=== PATIENT | female | born 1980 | race African-American/Black ===

== ENCOUNTER 2017-06-05 19:09 | Emergency (ER) | payer BC, MEDICAID ==
--- NOTE | 2017-06-05 20:44 | ER Document Report ---
ED Medical Screen (RME) - General Chief Complaint: Lower Abdominal Pain Stated Complaint: ABDOMINAL PAIN Time Seen by Provider: 06/05/17 20:41 Notes: 36-year-old female presents to ED for abdominal pain left and right sided it started this afternoon. She states the pain came out of nowhere she started feeling very hot and became sweaty and then the pain started. She denies nausea vomiting. She states her last menstrual period was May 14, 2017. I have greeted and performed a rapid initial assessment of this patient. A comprehensive ED assessment and evaluation of the patient, analysis of test results and completion of medical decision making process will be conducted by an additional ED providers. TRAVEL OUTSIDE OF THE [place] IN LAST 30 DAYS: No - HPI Onset: This afternoon Onset/Duration: Sudden Quality of pain: Cramping - Related Data Allergies/Adverse Reactions: No Known Allergies Allergy (Verified 11/08/16 14:58) Past Medical History - Social History Chew tobacco use (# tins/day): No Frequency of alcohol use: None Drug Abuse: None - Past Medical History Cardiac Medical History: Reports: Hx Hypertension - during . Neurological Medical History: Reports: Hx Seizures - none since 20 Renal/ Medical History: Denies: Hx Peritoneal Dialysis GI Medical History: Reports: Hx Gastroesophageal Reflux Disease Musculoskeltal Medical History: Reports Hx Musculoskeletal Trauma Psychiatric Medical History: Denies: Hx Depression Traumatic Medical History: Reports: Hx Fractures Past Surgical History: Reports: Hx Orthopedic Surgery - left ankle [employer] - Immunizations Immunizations up to date: Yes Hx Diphtheria, Pertussis, Tetanus Vaccination: Yes Physical Exam - Vital signs Vitals: Temp Pulse Resp BP Pulse Ox 98.2 F 88 20 145/71 H 100 06/05/17 19:19 06/05/17 19:19 06/05/17 19:19 06/05/17 19:19 06/05/17 19:19 - Abdominal Inspection: Normal Distension: Distended Bowel sounds: Normal Tenderness: Tender - Right and lower quadrant abdominal tenderness Organomegaly: No organomegaly Course - Vital Signs Vital signs: Temp Pulse Resp BP Pulse Ox 98.2 F 88 20 145/71 H 100 06/05/17 19:19 06/05/17 19:19 06/05/17 19:19 06/05/17 19:19 06/05/17 19:19
[2017-06-05 21:05] LABS: ABSOLUTE BASOPHILS # (AUTO) 0.1 10^3/uL (0.0-0.2); ABSOLUTE EOSINOPHILS # (AUTO) 0.1 10^3/uL (0.0-0.6); ABSOLUTE LYMPHOCYTES (AUTO) 1.4 10^3/uL (0.5-4.7); ABSOLUTE MONOCYTES (AUTO) 0.5 10^3/uL (0.1-1.4); ABSOLUTE NEUT (AUTO) 7.2 10^3/uL (1.7-8.2); BASOPHILS % (AUTO) 0.6 % (0-2); EOSINOPHILS % (AUTO) 1.4 % (0-6); HEMOGLOBIN 13.7 g/dL (12.0-15.5); HGB HCT DIFFERENCE -1.9; LYMPHOCYTES % (AUTO) 14.9 % (13-45); MEAN CORPUSCULAR HEMOGLOBIN 26.9 pg (27.0-33.4); MEAN CORPUSCULAR HGB CONC 31.9 g/dL (32.0-36.0); MEAN CORPUSCULAR VOLUME 84 fl (80-97); MONOCYTES % (AUTO) 5.6 % (3-13); RED CELL DISTRIBUTION WIDTH 15.2 % (11.5-14.0); SEGMENTED NEUTROPHILS % (AUTO) 77.5 % (42-78); WHITE BLOOD COUNT 9.3 10^3/uL (4.0-10.5)
[2017-06-05 21:09] LABS: APPEARANCE,URINE SLIGHTLY-CLOUDY; BILIRUBIN,URINE NEGATIVE (NEGATIVE); GLUCOSE, URINE 50 mg/dL (NEGATIVE); KETONES,URINE NEGATIVE (NEGATIVE); LEUKOCYTE ESTERASE,URINE SMALL (NEGATIVE); NITRITE,URINE NEGATIVE (NEGATIVE); PROTEIN,URINE NEGATIVE (NEGATIVE); URINE SPECIFIC GRAVITY 1.028; UROBILINOGEN,URINE NEGATIVE mg/dL (<2.0)
[2017-06-05 21:26] LABS: ALANINE AMINOTRANSFERASE 33 U/L (9-52); ALKALINE PHOSPHATASE 78 U/L (38-126); ANION GAP 10 (5-19); ASPARTATE AMINO TRANSFERASE 17 U/L (14-36); BILIRUBIN,DIRECT 0.3 mg/dL (0.0-0.4); BILIRUBIN,TOTAL 0.3 mg/dL (0.2-1.3); BLOOD UREA NITROGEN 11 mg/dL (7-20); CALCIUM 9.5 mg/dL (8.4-10.2); CARBON DIOXIDE 24 mmol/L (22-30); CHLORIDE 108 mmol/L (98-107); CREATININE RESULT 0.75 mg/dL (0.52-1.25); GLUCOSE 88 mg/dL (75-110); POTASSIUM 4.1 mmol/L (3.6-5.0); SODIUM 142.1 mmol/L (137-145)
--- NOTE | 2017-06-06 01:54 | ER Document Report ---
ED GI/ - General Mode of Arrival: Ambulatory Information source: Patient TRAVEL OUTSIDE OF THE [place] IN LAST 30 DAYS: No - HPI Patient complains to provider of: Abdominal pain <MARKUS CEDEÑO - Last Filed: 06/06/17 03:11> <AL SAXENA - Last Filed: 06/06/17 04:34> - General Chief Complaint: Lower Abdominal Pain Stated Complaint: ABDOMINAL PAIN Time Seen by Provider: 06/05/17 20:41 Notes: Patient is a 36-year-old female presents to ED for abdominal pain left and right sided it started yesterday afternoon. She states the pain came out of nowhere. Patient went to work yesterday and it started after work. Patient states it hurt even to walk. Patient denies any Gonorrhea or chlamydia but states she has had a history of ovarian cysts. Patient states she started feeling very hot and became sweaty and then the pain started. Patient denies nausea, vomiting, Patient's last menstrual period was 05/15/2017. Patient has no known drug allergies. (MARKUS CEDEÑO) - Related Data Allergies/Adverse Reactions: No Known Allergies Allergy (Verified 11/08/16 14:58) Past Medical History - General Information source: Patient - Social History Smoking Status: Current Every Day Smoker Chew tobacco use (# tins/day): No Frequency of alcohol use: None Drug Abuse: None Family History: Hypertension Patient has suicidal ideation: No Patient has homicidal ideation: No - Past Medical History Cardiac Medical History: Reports: Hx Hypertension - during . Neurological Medical History: Reports: Hx Seizures - none since 20 GI Medical History: Reports: Hx Gastroesophageal Reflux Disease Musculoskeltal Medical History: Reports Hx Musculoskeletal Trauma Traumatic Medical History: Reports: Hx Fractures Past Surgical History: Reports: Hx Orthopedic Surgery - left ankle [employer] - Immunizations Immunizations up to date: Yes Hx Diphtheria, Pertussis, Tetanus Vaccination: Yes <MARKUS CEDEÑO - Last Filed: 06/06/17 03:11> Review of Systems - Review of Systems Constitutional: See HPI, Chills, Diaphoresis EENT: No symptoms reported Cardiovascular: No symptoms reported Respiratory: No symptoms reported Gastrointestinal: See HPI, Abdominal pain Genitourinary: No symptoms reported Female Genitourinary: No symptoms reported Musculoskeletal: No symptoms reported Skin: No symptoms reported Hematologic/Lymphatic: No symptoms reported Neurological/Psychological: No symptoms reported -: Yes All other systems reviewed and negative <MARKUS CEDEÑO - Last Filed: 06/06/17 03:11> Physical Exam - Vital signs Interpretation: Normal <MARKUS CEDEÑO - Last Filed: 06/06/17 03:11> <AL SAXENA - Last Filed: 06/06/17 04:34> - Vital signs Vitals: Temp Pulse Resp BP Pulse Ox 98.2 F 88 20 145/71 H 100 06/05/17 19:19 06/05/17 19:19 06/05/17 19:19 06/05/17 19:19 06/05/17 19:19 - Notes Notes: GENERAL: Alert, interacts well. No acute distress. HEAD: Normocephalic, atraumatic. EYES: Appear normal. Pupils equal, round, and reactive to light. ENT: Moist mucus membranes, tongue midline. NECK: Full range of motion. Supple. Trachea midline. LUNGS: Clear to auscultation bilaterally, no wheezes, rales, or rhonchi. No respiratory distress. HEART: Regular rate and rhythm. No murmurs, gallops, or rubs. ABDOMEN: Soft, non-tender. Non-distended. Normal bowel sounds. No guarding, rebound or rigidity. EXTREMITIES: Moves all 4 extremities spontaneously. Normal strength. No edema. NEUROLOGICAL: Alert and oriented x3. Normal speech. No focal neurological deficits. GSC 15. PSYCH: Normal affect, normal mood. SKIN: Warm, dry, normal turgor. No rashes or lesions noted. (MARKUS CEDEÑO) Course - Laboratory Result Diagrams: 06/05/17 20:45 06/05/17 20:45 <MARKUS CEDEÑO - Last Filed: 06/06/17 03:11> - Laboratory Result Diagrams: 06/05/17 20:45 06/05/17 20:45 <AL SAXENA - Last Filed: 06/06/17 04:34> - Re-evaluation Re-evalutation: 06/06/17 02:03 Patient presents emerged from acute onset of lower abdominal pain which is now resolved on my physical examination. Said she was driving home came on all of a sudden with sharp stabbing in her vagina area. Says she has a history of ovarian cyst is completely resolved at the bedside now no fevers chills cough abdominal pain vaginal bleeding discharge or . Denies being having a history of gonorrhea or chlamydia and does not have painful intercourse. Acute laboratory evaluation is negative including and urine no signs of infection. And on a abdominal examination no acute guarding rebound or rigidity. Patient is discharged follow-up primary care physician 1 to days given a shot of Toradol no acute clinical concern for acute abdomen ovarian torsion or appendicitis and discussed reasons for ED return sooner (AL SAXENA) - Vital Signs Vital signs: Temp Pulse Resp BP Pulse Ox 98.2 F 66 18 119/80 99 06/06/17 02:41 06/06/17 02:41 06/06/17 02:41 06/06/17 02:41 06/06/17 02:41 - Laboratory Laboratory results interpreted by me: 06/05/17 06/05/17 06/05/17 20:45 20:45 20:45 MCH 26.9 L MCHC 31.9 L RDW 15.2 H Plt Count 144 L Chloride 108 H Urine Glucose (UA) 50 H Ur Leukocyte Esterase SMALL H Urine Ascorbic Acid 20 H Discharge <MARKUS CEDEÑO - Last Filed: 06/06/17 03:11> <AL SAXENA - Last Filed: 06/06/17 04:34> - Discharge Clinical Impression: Lower abdominal pain resolved Condition: Stable Disposition: HOME, SELF-CARE Additional Instructions: Abdominal Pain There are many causes of abdominal pain. Pain can mean a serious problem requiring surgery (such as appendicitis). It can also be an innocent problem that goes away on its own (such as a viral infection). Often, time must pass to determine the cause of pain. The physician does not feel that hospitalization is necessary, at present. Things may change within the next 24 hours. Call the doctor or come back for re- examination if any problems occur, such as: (1) Pain that becomes more severe, steady, or becomes concentrated in one specific area. Also, pain that is more severe with movement or coughing. (2) Vomiting that persists or becomes more frequent. (3) Blood in the vomitus, urine, or bowel movements. Blood in the stool may have a tarry or black appearance. (4) Shaking chills or fever greater than 100 degrees F. (5) The abdomen becomes more distended or swollen. (6) Bowel movements cease. (7) Failure to improve as expected. Forms: Return to Work Referrals: TOM YUAN DO [Primary Care Provider] - (Follow-up in 1-2 days return for increasing worsening or new symptoms) Scribe Attestation: 06/06/17 02:03 I personally performed the services described in the documentation reviewed the documentation recorded by my scribe in my presence and it accurately and completely records my words and actions (AL SAXENA) Scribe Documentation - Scribe Written by Scribe:: Hilda Callaway, 06/06/17 2:45 acting as scribe for :: Gonzalo <MARKUS CEDEÑO - Last Filed: 06/06/17 03:11>
[2017-06-06] MEDS ORDERED: KETOROLAC TROMETHAMINE 60 MG/2 ML SDV IM ONE (02:05)
[2017-06-06 02:44] VITALS: BP 119/80
== END 2017-06-06 02:41 | disposition home or self-care (01) ==
LOC: ER 19:09
DX: R10.30 Lower abdominal pain, unspecified (principal); R68.83 Chills (without fever); R61 Generalized hyperhidrosis; F17.200 Nicotine dependence, unspecified, uncomplicated; K21.9 Gastro-esophageal reflux disease without esophagitis
CPT/HCPCS: 99284; 96372; 36415; 84703; 85025; 80053; 81001; J1885

== ENCOUNTER 2017-06-25 16:30 | Emergency (ER) | payer BC ==
[2017-06-25 16:39] VITALS: BP 129/74
--- NOTE | 2017-06-25 17:14 | ER Document Report ---
ED GI/ - General Chief Complaint: Back Pain Stated Complaint: BACK PAIN Time Seen by Provider: 06/25/17 16:57 Notes: Patient is a 36-year-old female who returns emergency department complaining of spotting when she wipes after she urinates. Patient states that the symptoms started yesterday. Patient admits to low back pain as well that has responded well to Excedrin. Patient is not sure if she is started her menses again. She states that her last menstrual period was June 14 and lasted 4 days which is normal for her. Patient states that she is sexually active but has not been for about 6 weeks. She denies any pelvic pain, pelvic cramping, vaginal discharge, vaginal pain. Patient only admits to noticing blood when she wipes after urination but this denies any vaginal discharge or vaginal bleeding noted in her underwear. Otherwise patient admits to past medical history significant for anxiety and history of seizures. Her primary care physician is Dr. Alli Dukes TRAVEL OUTSIDE OF THE [place] IN LAST 30 DAYS: No - Related Data Allergies/Adverse Reactions: No Known Allergies Allergy (Verified 11/08/16 14:58) Past Medical History - Social History Smoking Status: Current Every Day Smoker Family History: Hypertension - Past Medical History Cardiac Medical History: Reports: Hx Hypertension - during . Neurological Medical History: Reports: Hx Seizures - none since 20 Renal/ Medical History: Denies: Hx Peritoneal Dialysis GI Medical History: Reports: Hx Gastroesophageal Reflux Disease Musculoskeltal Medical History: Reports Hx Musculoskeletal Trauma Psychiatric Medical History: Denies: Hx Depression Traumatic Medical History: Reports: Hx Fractures Past Surgical History: Reports: Hx Orthopedic Surgery - left ankle [employer] - Immunizations Immunizations up to date: Yes Hx Diphtheria, Pertussis, Tetanus Vaccination: Yes Review of Systems - Review of Systems Constitutional: No symptoms reported Genitourinary: See HPI -: Yes All other systems reviewed and negative Physical Exam - Vital signs Vitals: Temp Pulse Resp BP Pulse Ox 98.6 F 85 16 129/74 H 98 06/25/17 16:35 06/25/17 16:35 06/25/17 16:35 06/25/17 16:35 06/25/17 16:35 - Notes Notes: PHYSICAL EXAM GENERAL: Alert, interacts well. HEAD: Normocephalic, atraumatic. EYES: Pupils equal, round, and reactive to light. Extraocular movements intact. ENT: Oral mucosa moist, tongue midline. NECK: Full range of motion. Supple. Trachea midline. LUNGS: Clear to auscultation bilaterally, no wheezes, rales, or rhonchi. No respiratory distress. HEART: Regular rate and rhythm. No murmurs, gallops, or rubs. ABDOMEN: Soft, nondistended, nontender. No guarding, rebound, or rigidity.. Bowel sounds present in all 4 quadrants. EXTREMITIES: Moves all 4 extremities spontaneously. No edema, radial and dorsalis pedis pulses 2/4 bilaterally. No cyanosis. NEUROLOGICAL: Alert and oriented x4. Normal speech. PSYCH: Normal affect, normal mood. SKIN: Warm, dry, normal turgor. No rashes or lesions noted. Course - Re-evaluation Re-evalutation: 06/25/17 20:08 Patient is a 36-year-old female who is hemodynamically stable, no acute distress and afebrile. Urinalysis shows evidence of urinary tract infection without associated hematuria or concern for pyelonephritis. Patient will be started on antibiotic course and given strict return precautions otherwise will follow up with primary care. After performing a Medical Screening Examination, I estimate there is LOW risk for ACUTE APPENDICITIS, BOWEL OBSTRUCTION, ACUTE CHOLECYSTITIS, PERFORATED DIVERTICULITIS, INCARCERATED HERNIA, PANCREATITIS, PELVIC INFLAMMATORY DISEASE, PERFORATED ULCER, ECTOPIC , or TUBO-OVARIAN ABSCESS, thus I consider the discharge disposition reasonable. Also, there is no evidence or peritonitis , sepsis, or toxicity. I have reevaluated this patient multiple times and no significant life threatening changes are noted. The patient and I have discussed the diagnosis and risks, and we agree with discharging home with close follow-up with the understanding that symptoms and presentations can change. We also discussed returning to the Emergency Department immediately if new or worsening symptoms occur. We have discussed the symptoms which are most concerning (e.g., bloody stool, fever, changing or worsening pain, vomiting) that necessitate immediate return. - Vital Signs Vital signs: Temp Pulse Resp BP Pulse Ox 98.6 F 85 16 129/74 H 98 06/25/17 16:35 06/25/17 16:35 06/25/17 16:35 06/25/17 16:35 06/25/17 16:35 - Laboratory Laboratory results interpreted by me: 06/25/17 18:00 Ur Leukocyte Esterase MODERATE H Urine Ascorbic Acid 40 H Discharge - Discharge Clinical Impression: UTI (urinary tract infection) Qualifiers: Urinary tract infection type: acute cystitis Hematuria presence: without hematuria Qualified Code(s): N30.00 - Acute cystitis without hematuria Condition: Good Disposition: HOME, SELF-CARE Additional Instructions: URINARY TRACT INFECTION: Your evaluation indicates that you have a urinary tract infection. This is due to germs growing in the bladder. This is a common problem. This infection usually responds quickly to antibiotics. Your antibiotic should be taken exactly as prescribed. Drink plenty of fluids -- three to four quarts a day. Occasionally, a bladder anesthetic will be prescribed to help stop the feeling of urgency until the antibiotic has a chance to clear the infection. This may cause your urine to be dark orange. Certain urine infections require a culture. If the doctor obtained a culture, the results will be back in two days. You should call to see if a change in treatment is needed. A repeat urinalysis after you finish treatment is often recommended. The physician will let you know if further testing is required. Call the doctor if you develop fever, chills, flank pain, inability to urinate, or blood in the urine. ANTIBIOTIC THERAPY: You have been given an antibiotic prescription. It's important that you take all the medication, unless instructed otherwise by your physician. Failure to complete the entire course can result in relapse of your condition. Common side effects of antibiotics include nausea, intestinal cramping, or diarrhea. Women may develop vaginal yeast infections, and babies can get yeast (thrush) in the mouth following the use of antibiotics. Contact your physician if you develop significant side effects from this medication. Allergy to this antibiotic can result in hives, wheezing, faintness, or itching. If symptoms of allergy occur, stop the medication and call the doctor. TRIMETHOPRIM-SULFA: You have been given a prescription for trimethoprim-sulfa (TMS, Septra, Bactrim). This is a combination antibiotic of the sulfa class, often used for urinary tract infections, middle ear infections, bronchitis, shigella intestinal infection, and Pneumocystis pneumonia. TMS is usually well-tolerated. Occasional side effects include nausea and decreased appetite. Septra is not recommended for infants less than two months of age. Do not take this medication if you have experienced severe side effects or allergy to sulfa medicine. You should stop this medicine at once and contact your physician if you develop any rash, joint pain, shortness of breath, bruising, or jaundice ( yellow color in the skin), or if you develop any other new or unusual symptoms. FOLLOW-UP CARE: If you have been referred to a physician for follow-up care, call the physician s office for an appointment as you were instructed or within the next two days. If you experience worsening or a significant change in your symptoms, notify the physician immediately or return to the Emergency Department at any time for re-evaluation. Prescriptions: Sulfamethoxazole/Trimethoprim [Bactrim Ds Tablet] 1 each PO BID #6 tablet Referrals: ALLI DUKES MD [Primary Care Provider] - Follow up in 1 week
[2017-06-25 18:28] LABS: APPEARANCE,URINE CLOUDY; BILIRUBIN,URINE NEGATIVE (NEGATIVE); GLUCOSE, URINE NEGATIVE (NEGATIVE); KETONES,URINE NEGATIVE (NEGATIVE); LEUKOCYTE ESTERASE,URINE MODERATE (NEGATIVE); NITRITE,URINE NEGATIVE (NEGATIVE); PROTEIN,URINE NEGATIVE (NEGATIVE); URINE SPECIFIC GRAVITY 1.026; UROBILINOGEN,URINE NEGATIVE mg/dL (<2.0)
[2017-06-25] MEDS ORDERED: IBUPROFEN 800 MG TABLET PO ONE (18:42)
[2017-06-25] MEDS ORDERED: SULFAMETHOXAZOLE/TRIMETHOPRIM 800-160 MG TABLET PO ONE (18:42)
== END 2017-06-25 19:02 | disposition home or self-care (01) ==
LOC: ER 16:30
DX: N30.00 Acute cystitis without hematuria (principal); M54.5 Low back pain; F17.200 Nicotine dependence, unspecified, uncomplicated
CPT/HCPCS: 81001; 81025; 99283

== ENCOUNTER 2017-11-09 10:54 | Emergency (ER) | payer SELFPAY ==
--- NOTE | 2017-11-09 11:58 | ER Document Report ---
ED General - General Chief Complaint: Wrist Pain Stated Complaint: RIGHT WRIST PAIN Time Seen by Provider: 11/09/17 11:56 Mode of Arrival: Ambulatory Information source: Patient Notes: Patient is a 36-year-old female presents with right wrist pain and swelling started 3 days ago. She denies any fall or injury to the wrist. 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 She does endorse increased repetitive movement at her job. She also endorses swelling and a burning sensation to her third fourth and fifth digit on her right hand. She has not tried any medication for this. She denies any numbness or tingling. Otherwise doing well. TRAVEL OUTSIDE OF THE [place] IN LAST 30 DAYS: No - Related Data Allergies/Adverse Reactions: No Known Allergies Allergy (Verified 11/09/17 10:55) Past Medical History - General Information source: Patient - Social History Smoking Status: Current Every Day Smoker Chew tobacco use (# tins/day): No Frequency of alcohol use: None Drug Abuse: None Family History: Hypertension Patient has suicidal ideation: No Patient has homicidal ideation: No - Past Medical History Cardiac Medical History: Reports: Hx Hypertension - during . Neurological Medical History: Reports: Hx Seizures - none since 20 Renal/ Medical History: Denies: Hx Peritoneal Dialysis GI Medical History: Reports: Hx Gastroesophageal Reflux Disease Musculoskeltal Medical History: Reports Hx Musculoskeletal Trauma Psychiatric Medical History: Denies: Hx Depression Traumatic Medical History: Reports: Hx Fractures Past Surgical History: Reports: Hx Orthopedic Surgery - left ankle [employer] - Immunizations Immunizations up to date: Yes Hx Diphtheria, Pertussis, Tetanus Vaccination: Yes Review of Systems - Review of Systems Constitutional: See HPI EENT: No symptoms reported Cardiovascular: No symptoms reported Respiratory: No symptoms reported Gastrointestinal: No symptoms reported Genitourinary: No symptoms reported Female Genitourinary: No symptoms reported Musculoskeletal: See HPI Skin: No symptoms reported Hematologic/Lymphatic: No symptoms reported Neurological/Psychological: No symptoms reported Physical Exam - Vital signs Vitals: Temp Pulse Resp BP Pulse Ox 98.7 F 88 16 133/92 H 99 11/09/17 10:58 11/09/17 10:58 11/09/17 10:58 11/09/17 10:58 11/09/17 10:58 - Notes Notes: PHYSICAL EXAM: CONSTITUTIONAL: Alert and oriented, well-appearing and in no acute distress. HENT: Normocephalic, atraumatic. Ear canals without erythema or foreign body, Moist mucous membranes. EYES: Pupils equal round and reactive to light, EOM intact. Sclera anicteric, conjunctiva are normal. No entrapment. NECK: supple without lymphadenopathy. No midline tenderness or paraspinous muscle spasms. No step-offs or deformities. ROM intact. HEART: Regular rate and rhythm without murmurs. LUNGS: CTAB and equal. No wheezes, rales or rhonchi. EXTREMITIES: Right wrist - tender to palpation over distal radius/ulna with minimal swelling, Positive Phalen's and Tinel's test. Negative Finklestein's. Normal range of motion, no pitting edema. No cyanosis. Cap Refill <3 seconds. Distal pulses intact. NEURO: Cranial nerves grossly intact. Normal sensory/motor exams. PSYCH: Normal mood, normal affect. SKIN: Warm and dry. Normal turgor. No rashes or lesions noted. Course - Re-evaluation Re-evalutation: 11/09/17 11:58 Patient seen and examined. Patient is alert and oriented, speaking in full sentences without difficulty, nontoxic in appearance. Exam consistent with carpal tunnel syndrome, low suspicion at this time for DVT or acute fracture/ dislocation. She denies any injury to the area. She does repetitive motion at work. Will treat with Velcro wrist splint, steroids and anti-inflammatories. At this time, will discharge with return precautions and follow-up recommendations. Verbal discharge instructions given at the bedside and opportunity for questions given. Medication warnings reviewed. Patient is in agreement with this plan and has verbalized understanding of return precautions and the need for primary care follow-up in the next 24-72 hours. - Vital Signs Vital signs: Temp Pulse Resp BP Pulse Ox 98.7 F 88 16 133/92 H 99 11/09/17 10:58 11/09/17 10:58 11/09/17 10:58 11/09/17 10:58 11/09/17 10:58 Procedures - Immobilization Right Wrist Pre-Proc Neuro Vasc Exam: Normal Immobilizer type: Cock-up Performed by: PCT Post-Proc Neuro Vasc Exam: Normal Alignment checked and good: Yes Discharge - Discharge Clinical Impression: Carpal tunnel syndrome of right wrist Condition: Stable Disposition: HOME, SELF-CARE Instructions: Carpal Tunnel Syndrome ([facility]) Additional Instructions: Anti-Inflammatory Medication You have received a prescription for an antiinflammatory agent. This is an excellent, safe drug for pain control. In addition, it has potent antiinflammatory effects which are beneficial, especially in the treatment of injuries, arthritis, or tendonitis. It's best to take this medicine with food. Persons with ulcer disease or allergy to aspirin should notify their physician of this before taking this drug. Take the medication exactly as prescribed. Don't take additional doses unless instructed to do so by your doctor. If you develop wheezing, shortness of breath, hives, faintness, stomach pain, vomiting, or dark black stools, return for re-evaluation at once. STEROID MEDICATION: You have been given a medicine of the cortisone/steroid class. This medication is used to control inflammation or allergy. It is usually only given for a short period of time, until the acute process subsides. There are usually no side effects from short-term use of cortisone-like medications. Some persons feel an increased sense of well-being and are not sleepy at bedtime. Long-term use of cortisone medications is best avoided, unless required for a severe condition. If your condition does not remit, or relapses after the course of corticosteroid medication, you should consult your physician. Follow up with the provider of your choice in one to two weeks. Prescriptions: Naproxen [Naprosyn 250 mg Tablet] 250 mg PO BID #20 tablet Prednisone [Deltasone 20 mg Tablet] 3 tab PO DAILY 5 Days tablet Forms: Return to Work
[2017-11-09 12:25] VITALS: BP 132/78
== END 2017-11-09 12:24 | disposition home or self-care (01) ==
LOC: ER 10:54
DX: G56.01 Carpal tunnel syndrome, right upper limb (principal); M25.531 Pain in right wrist; R20.8 Other disturbances of skin sensation; F17.200 Nicotine dependence, unspecified, uncomplicated
CPT/HCPCS: 99283; L3908

== ENCOUNTER 2018-05-24 19:13 | Emergency (ER) | payer BC, MEDICAID ==
[2018-05-24] MEDS ORDERED: DIPHENHYDRAMINE HCL 50 MG CAPSULE PO ONE (19:51)
[2018-05-24] MEDS ORDERED: KETOROLAC TROMETHAMINE 10 MG TABLET PO ONE (19:51)
[2018-05-24] MEDS ORDERED: DIAZEPAM 2 MG TABLET PO ONE (19:51)
[2018-05-24] MEDS ORDERED: PROCHLORPERAZINE MALEATE 10 MG TABLET PO ONE (19:51)
--- NOTE | 2018-05-24 19:54 | ER Document Report ---
ED General - General Chief Complaint: Headache Stated Complaint: CRAMPING Time Seen by Provider: 05/24/18 19:27 Mode of Arrival: Ambulatory Information source: Patient Notes: 37-year-old female history of migraine headaches and sciatica presents with complaints of exacerbation of both. Patient notes she has had sciatica for over a year now is always on the right side. Patient denies any trauma. Patient does note that she has had a migraine for the past 3 days associated with light sensitivity. Patient does not know a specific cause of her migraines. Denies any neurological deficits denies any confusion denies any vomiting TRAVEL OUTSIDE OF THE [place] IN LAST 30 DAYS: No - HPI Onset: Other - 3 day duration Onset/Duration: Persistent Quality of pain: Achy Severity: Mild Pain Level: 1 Associated symptoms: Body/muscle aches, Headache Exacerbated by: Movement, Other Relieved by: Denies Similar symptoms previously: Yes Recently seen / treated by doctor: Yes - Related Data Allergies/Adverse Reactions: No Known Allergies Allergy (Verified 05/24/18 19:13) Past Medical History - Social History Smoking Status: Never Smoker Cigarette use (# per day): No Chew tobacco use (# tins/day): No Smoking Education Provided: No Family History: Hypertension - Past Medical History Cardiac Medical History: Reports: Hx Hypertension - during . 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 Denies recent illness. EENT: Denies eye, ear, throat, or mouth pain or symptoms. Denies nasal or sinus congestion or discharge. Denies throat, tongue, or mouth swelling or difficulty swallowing. CARDIOVASCULAR: Denies chest pain. Denies palpitations or racing or irregular heart beat. Denies ankle edema. RESPIRATORY: Denies cough, cold, or chest congestion. Denies shortness of breath, difficulty breathing, or wheezing. GASTROINTESTINAL: Denies abdominal pain or distention. Denies nausea, vomiting , or diarrhea. Denies blood in vomitus, stools, or per rectum. Denies black, tarry stools. Denies constipation. GENITOURINARY: Denies difficulty urinating, painful urination, burning, frequency, blood in urine, or discharge. FEMALE GENITOURINARY: Denies vaginal bleeding, heavy or abnormal periods, irregular periods. Denies vaginal discharge or odor. MUSCULOSKELETAL: Denies back or neck pain or stiffness. Denies joint pain or swelling. SKIN: Denies rash, lesions or sores. HEMATOLOGIC : Denies easy bruising or bleeding. LYMPHATIC: Denies swollen, enlarged glands. NEUROLOGICAL: Admits to migraine headache admits to right low back pain radiating to the right leg PSYCHIATRIC: Denies anxiety or stress. Denies depression, suicidal ideation, or homicidal ideation. ALL OTHER SYSTEMS REVIEWED AND NEGATIVE. PHYSICAL EXAMINATION: GENERAL: Well-appearing, well-nourished and in no acute distress. HEAD: Atraumatic, normocephalic. EYES: Pupils equal round and reactive to light, extraocular movements intact, conjunctiva are normal. ENT: Nares patent, oropharynx clear without exudates. Moist mucous membranes. NECK: Normal range of motion, supple without lymphadenopathy LUNGS: Breath sounds clear to auscultation bilaterally and equal. No wheezes rales or rhonchi. HEART: Regular rate and rhythm without murmurs ABDOMEN: Soft, nontender, nondistended abdomen. No guarding, no rebound. No masses appreciated. Female : deferred Musculoskeletal: Normal range of motion, no pitting or edema. No cyanosis. NEUROLOGICAL: Cranial nerves grossly intact. Normal speech, normal gait. Normal sensory, motor exams PSYCH: Normal mood, normal affect. SKIN: Warm, Dry, normal turgor, no rashes or lesions noted. Dictation was performed using [employer] voice recognition software Physical Exam - Vital signs Vitals: Temp Pulse Resp BP Pulse Ox 98.7 F 92 18 134/88 H 99 05/24/18 19:22 05/24/18 19:22 05/24/18 19:22 05/24/18 19:22 05/24/18 19:22 Course - Re-evaluation Re-evalutation: 05/24/18 19:54 Patient will be treated for migraine and sciatica, she overall looks well neurologically is intact, I do not believe she requires any imaging as this is similar to previous migraines 05/24/18 22:20 Patient notes symptoms have improved significantly, she will be discharged at this time After performing a Medical Screening Examination, I estimate there is LOW risk for ACUTE GLAUCOMA, TEMPORAL ARTERITIS, MENINGITIS, INCRANIAL HEMORRHAGE, or ISCHEMIC STROKE thus I consider the discharge disposition reasonable. I have reevaluated this patient multiple times and no significant life threatening changes are noted. The patient and I have discussed the diagnosis and risks, and we agree with discharging home with close follow-up with the understanding that symptoms and presentations can change. We also discussed returning to the Emergency Department immediately if new or worsening symptoms occur. We have discussed the symptoms which are most concerning (e.g., changing or worsening symptoms, new numbness or weakness, vomiting, fever) that necessitate immediate return. - Vital Signs Vital signs: Temp Pulse Resp BP Pulse Ox 98.7 F 86 18 141/96 H 98 05/24/18 19:22 05/24/18 19:57 05/24/18 21:00 05/24/18 21:00 05/24/18 21:00 Discharge - Discharge Clinical Impression: Migraine headache Qualifiers: Migraine type: unspecified Status migrainosus presence: without status migrainosus Intractability: not intractable Qualified Code(s): G43.909 - Migraine, unspecified, not intractable, without status migrainosus Sciatica Qualifiers: Laterality: right Qualified Code(s): M54.31 - Sciatica, right side Condition: Stable Disposition: HOME, SELF-CARE Instructions: Headache ([facility]) Prescriptions: Cyclobenzaprine HCl [Flexeril 10 mg Tablet] 10 mg PO TIDP PRN #15 tab PRN Reason: Forms: Return to Work Referrals: KILEY DUKES MD [Primary Care Provider] - Follow up tomorrow
[2018-05-24 22:23] VITALS: BP 124/89
== END 2018-05-24 22:26 | disposition home or self-care (01) ==
LOC: ER 19:13
DX: G43.909 Migraine, unspecified, not intractable, without status migrainosus (principal); M54.31 Sciatica, right side; M79.1 Myalgia; I10 Essential (primary) hypertension; M79.604 Pain in right leg
CPT/HCPCS: 99284; J3490 ×3; S0183

== ENCOUNTER 2019-05-13 12:57 | Emergency (ER) | payer MEDICAID ==
[2019-05-13 13:27] VITALS: BP 132/91
--- NOTE | 2019-05-13 14:19 | RADIOLOGY REPORT (SQ) ---
EXAM DESCRIPTION: CHEST 2 VIEWS COMPLETED DATE/TIME: 05/13/2019 2:10 pm REASON FOR STUDY: Chest Pain COMPARISON: 02/21/2014. EXAM PARAMETERS: NUMBER OF VIEWS: two views TECHNIQUE: Digital Frontal and Lateral radiographic views of the chest acquired. RADIATION DOSE: NA LIMITATIONS: none FINDINGS: LUNGS AND PLEURA: No opacities, masses or pneumothorax. No pleural effusion. MEDIASTINUM AND HILAR STRUCTURES: No masses or contour abnormalities. HEART AND VASCULAR STRUCTURES: Heart normal size. No evidence for failure. BONES: No acute findings. HARDWARE: None in the chest. OTHER: No other significant finding. IMPRESSION: NO ACUTE RADIOGRAPHIC FINDING IN THE CHEST. TECHNICAL DOCUMENTATION: JOB ID: [id number] [employer]- All Rights Reserved Reading location - IP/workstation name: [email or web address]
[2019-05-13] MEDS ORDERED: LIDOCAINE 2% VISCOUS SOLN 20 ML UDCUP PO ONE (15:04)
[2019-05-13] MEDS ORDERED: MAG HYDROX/AL HYDROX/SIMETH SUSP 30 ML UDCUP PO ONE (15:04)
[2019-05-13] MEDS ORDERED: METOCLOPRAMIDE HCL ORAL SOLN 10 MG/10 ML UDCUP PO ONE (15:04)
--- NOTE | 2019-05-13 15:07 | ER Document Report ---
ED Medical Screen (RME) - General Chief Complaint: Chest Pain Stated Complaint: CHEST PAIN Time Seen by Provider: 05/13/19 15:01 Primary Care Provider: KILEY DUKES MD [Primary Care Provider] - Follow up as needed Notes: Patient is a 38-year-old female presents to the emergency department generalized chest pain. States in the center of her chest and at times radiates to her left shoulder. Patient is complaining of pain being a burning sensation. Denying any history of acid reflux. Denies eating anything out of the ordinary or spicy. Patient states pain sometimes hurts more when you touch it and other ti mes does not change when you touch it. Patient states she does have a history of hypertension states she was on medications but is no longer on medication states "I was fixed." GENERAL: Alert, interacts well. No acute distress. LUNGS: Clear to auscultation bilaterally, no wheezes, rales, or rhonchi. No respiratory distress. HEART: Regular rate and rhythm. No murmur I have greeted and performed a rapid initial assessment of this patient. A comprehensive ED assessment and evaluation of the patient, analysis of test results and completion of the medical decision making process will be conducted by additional ED providers. I have specifically instructed the patient or family members with the patient to immediately return to any nursing staff should anything change in the patient's condition or with their chief complaint. This medical record was dictated with voice recognizing software. There may be grammatical, syntax errors that are unintended. TRAVEL OUTSIDE OF THE [place] IN LAST 30 DAYS: No - Related Data Allergies/Adverse Reactions: No Known Allergies Allergy (Verified 05/13/19 13:03) Past Medical History - Past Medical History Cardiac Medical History: Reports: Hx Hypertension - during . Neurological Medical History: Reports: Hx Seizures - none since 20 Renal/ Medical History: Denies: Hx Peritoneal Dialysis GI Medical History: Reports: Hx Gastroesophageal Reflux Disease Musculoskeltal Medical History: Reports Hx Musculoskeletal Trauma Psychiatric Medical History: Denies: Hx Depression Traumatic Medical History: Reports: Hx Fractures Past Surgical History: Reports: Hx Orthopedic Surgery - left ankle [employer] - Immunizations Immunizations up to date: Yes Hx Diphtheria, Pertussis, Tetanus Vaccination: Yes Physical Exam - Vital signs Vitals: Temp Pulse Resp BP Pulse Ox 98.7 F 83 18 132/91 H 100 05/13/19 13:25 05/13/19 13:25 05/13/19 13:25 05/13/19 13:25 05/13/19 13:25 Course - Vital Signs Vital signs: Temp Pulse Resp BP Pulse Ox 98.7 F 83 18 132/91 H 100 05/13/19 13:25 05/13/19 13:25 05/13/19 13:25 05/13/19 13:25 05/13/19 13:25 Doctor's Discharge - Discharge Referrals: KILEY DUKES MD [Primary Care Provider] - Follow up as needed
--- NOTE | 2019-05-13 22:53 | EKG REPORT ---
SEVERITY:- NORMAL ECG - SINUS RHYTHM : Confirmed by: Julianna Ward 13-May-2019 22:52:51
== END 2019-05-13 16:05 | disposition left against medical advice (07) ==
LOC: ER 12:57
DX: R07.9 Chest pain, unspecified (principal); Z53.20 Procedure and treatment not carried out because of patient's decision for unspecified reasons
CPT/HCPCS: 71046; 93005; 93010; 99285

== ENCOUNTER 2019-09-06 17:36 | Emergency (ER) | payer MEDICAID ==
[2019-09-06 18:04] VITALS: BP 135/94
--- NOTE | 2019-09-06 18:33 | ER Document Report ---
ED Medical Screen (RME) - General Chief Complaint: Vaginal Bleeding Stated Complaint: VAGINAL BLEEDING Time Seen by Provider: 09/06/19 18:31 Primary Care Provider: KILEY DUKES MD [Primary Care Provider] - Follow up as needed Mode of Arrival: Ambulatory Information source: Patient Notes: 38-year-old female presented to ED for complaint of vaginal bleeding and pelvic cramping. She thinks she might be having a miscarriage. She is not sure how far along she is. She states her last menstrual cycle was August 15. She states that her. Usually comes on the of the . She states it is very early to be having a cycle at this time. I have greeted and performed a rapid initial assessment of this patient. A comprehensive ED assessment and evaluation of the patient, analysis of test results and completion of medical decision making process will be conducted by an additional ED providers. TRAVEL OUTSIDE OF THE [place] IN LAST 30 DAYS: No - Related Data Allergies/Adverse Reactions: No Known Allergies Allergy (Verified 05/13/19 13:03) Past Medical History - Social History Chew tobacco use (# tins/day): No Frequency of alcohol use: Occasional Drug Abuse: Cocaine, Marijuana - Past Medical History Cardiac Medical History: Reports: Hx Hypertension - during . Neurological Medical History: Reports: Hx Seizures - none since Renal/ Medical History: Denies: Hx Peritoneal Dialysis GI Medical History: Reports: Hx Gastroesophageal Reflux Disease Musculoskeltal Medical History: Reports Hx Musculoskeletal Trauma Psychiatric Medical History: Denies: Hx Depression Traumatic Medical History: Reports: Hx Fractures Past Surgical History: Reports: Hx Orthopedic Surgery - left ankle [employer] - Immunizations Immunizations up to date: Yes Hx Diphtheria, Pertussis, Tetanus Vaccination: Yes Physical Exam - Vital signs Vitals: Temp Pulse Resp BP Pulse Ox 98.5 F 95 18 135/94 H 96 09/06/19 18:03 09/06/19 18:03 09/06/19 18:03 09/06/19 18:03 09/06/19 18:03 Course - Vital Signs Vital signs: Temp Pulse Resp BP Pulse Ox 98.5 F 95 18 135/94 H 96 09/06/19 18:03 09/06/19 18:03 09/06/19 18:03 09/06/19 18:03 09/06/19 18:03 Doctor's Discharge - Discharge Referrals: KILEY DUKES MD [Primary Care Provider] - Follow up as needed
[2019-09-06 19:23] LABS: APPEARANCE,URINE SLIGHTLY-CLOUDY; BILIRUBIN,URINE NEGATIVE (NEGATIVE); COLOR,URINE YELLOW; GLUCOSE, URINE NEGATIVE (NEGATIVE); KETONES,URINE NEGATIVE (NEGATIVE); PROTEIN,URINE 30 mg/dL (NEGATIVE); URINE SPECIFIC GRAVITY 1.028; UROBILINOGEN,URINE NEGATIVE mg/dL (<2.0)
[2019-09-06 19:42] LABS: URINE AMPHETAMINES SCREEN NEGATIVE; URINE BARBITURATES SCREEN NEGATIVE; URINE BENZODIAZEPINES SCREEN NEGATIVE; URINE COCAINE SCREEN UNCONFIRMED POSITIVE; URINE MARIJUANA (THC) SCREEN NEGATIVE; URINE METHADONE SCREEN NEGATIVE; URINE PHENCYCLIDINE SCREEN NEGATIVE
[2019-09-06 20:20] LABS: ABSOLUTE BASOPHILS # (AUTO) 0.1 10^3/uL (0.0-0.2); ABSOLUTE EOSINOPHILS # (AUTO) 0.3 10^3/uL (0.0-0.6); ABSOLUTE LYMPHOCYTES (AUTO) 2.2 10^3/uL (0.5-4.7); ABSOLUTE MONOCYTES (AUTO) 0.7 10^3/uL (0.1-1.4); ABSOLUTE NEUT (AUTO) 3.5 10^3/uL (1.7-8.2); BASOPHILS % (AUTO) 1.2 % (0-2); EOSINOPHILS % (AUTO) 4.5 % (0-6); HEMATOCRIT 38.1 % (36.0-47.0); HEMOGLOBIN 12.2 g/dL (12.0-15.5); LYMPHOCYTES % (AUTO) 32.8 % (13-45); MEAN CORPUSCULAR HEMOGLOBIN 26.2 pg (27.0-33.4); MEAN CORPUSCULAR HGB CONC 31.9 g/dL (32.0-36.0); MEAN CORPUSCULAR VOLUME 82 fl (80-97); MONOCYTES % (AUTO) 9.7 % (3-13); PLATELET COUNT 219 10^3/uL (150-450); RED BLOOD COUNT 4.65 10^6/uL (3.72-5.28); RED CELL DISTRIBUTION WIDTH 15.2 % (11.5-14.0); SEGMENTED NEUTROPHILS % (AUTO) 51.8 % (42-78); TOTAL CELLS COUNTED % (AUTO) 100 %; WHITE BLOOD COUNT 6.8 10^3/uL (4.0-10.5)
[2019-09-06 20:28] LABS: ALKALINE PHOSPHATASE 69 U/L (38-126); ANION GAP 6 (5-19); ASPARTATE AMINO TRANSFERASE 20 U/L (14-36); BILIRUBIN,DIRECT 0.1 mg/dL (0.0-0.4); BILIRUBIN,TOTAL 0.3 mg/dL (0.2-1.3); BLOOD UREA NITROGEN 13 mg/dL (7-20); CALCIUM 10.1 mg/dL (8.4-10.2); CARBON DIOXIDE 28 mmol/L (22-30); CHLORIDE 103 mmol/L (98-107); GLUCOSE 87 mg/dL (75-110); POTASSIUM 4.4 mmol/L (3.6-5.0)
[2019-09-06] MEDS ORDERED: IBUPROFEN 800 MG TABLET PO ONE (23:30)
--- NOTE | 2019-09-06 23:33 | ER Document Report ---
HPI - HPI Patient complains to provider of: vaginal bleeding Time Seen by Provider: 09/06/19 18:31 Onset: This afternoon Onset/Duration: Gradual Quality of pain: Cramping Pain Level: 3 Context: Patient presents complaining of vaginal bleeding that started today. Patient states her last menstrual period was 08/15/2019 and lasted for 4 days. Patient states she is usually very regular. Patient states vaginal bleeding today started earlier than her usual. Should start and is much heavier. Patient reports passing multiple clots. Patient was concerned that she may be . Patient denies any urinary symptoms. Patient denies any chest pain lightheadedness or dizziness. Associated Symptoms: denies: Nausea, Vomiting Exacerbated by: Denies Relieved by: Denies Similar symptoms previously: No Recently seen / treated by doctor: No - ROS ROS below otherwise negative: Yes Systems Reviewed and Negative: Yes All other systems reviewed and negative - CONSTITUTIONAL Constitutional: DENIES: Fever - NEURO Neurology: DENIES: Headache - CARDIOVASCULAR Cardiovascular: DENIES: Chest pain - RESPIRATORY Respiratory: DENIES: Trouble Breathing, Coughing - GASTROINTESTINAL Gastrointestinal: REPORTS: Abdominal Pain. DENIES: Nausea, Patient vomiting - REPRODUCTIVE LMP: 08/15/19 Reproductive: REPORTS: Abnormal bleeding / discharge. DENIES: : - MUSCULOSKELETAL Musculoskeletal: DENIES: Back Pain - DERM Skin Color: Normal Skin Problems: None Past Medical History - General Information source: Patient - Social History Smoking Status: Current Every Day Smoker Chew tobacco use (# tins/day): No Frequency of alcohol use: Occasional Drug Abuse: Cocaine, Marijuana Occupation: Foodservice Family History: Hypertension Patient has suicidal ideation: No Patient has homicidal ideation: No - Past Medical History Cardiac Medical History: Reports: Hx Hypertension - during . Neurological Medical History: Reports: Hx Seizures - none since 20 Renal/ Medical History: Denies: Hx Peritoneal Dialysis GI Medical History: Reports: Hx Gastroesophageal Reflux Disease Musculoskeletal Medical History: Reports Hx Musculoskeletal Trauma Psychiatric Medical History: Denies: Hx Depression Traumatic Medical History: Reports: Hx Fractures Past Surgical History: Reports: Hx Orthopedic Surgery - left ankle [employer] - Immunizations Immunizations up to date: Yes Hx Diphtheria, Pertussis, Tetanus Vaccination: Yes Vertical Provider Document - CONSTITUTIONAL Agree With Documented VS: Yes Exam Limitations: No Limitations General Appearance: WD/WN, No Apparent Distress - INFECTION CONTROL TRAVEL OUTSIDE OF THE [place] IN LAST 30 DAYS: No - HEENT HEENT: Atraumatic, Normocephalic - NECK Neck: Normal Inspection, Supple - RESPIRATORY Respiratory: Breath Sounds Normal, No Respiratory Distress - CARDIOVASCULAR Cardiovascular: Regular Rate, Regular Rhythm - GI/ABDOMEN Gastrointestinal: Abdomen Soft, Abdomen Tender - lower pelvic - REPRODUCTIVE Female Genitalia: negative: CMT, Adnexal Pain-Right, Adnexal Pain-Left Notes: Patient with blood in vaginal vault, cervix closed, no clots. No excessive bleeding. - BACK Back: Normal Inspection. negative: CVA Tenderness-Right, CVA Tenderness-Left - MUSCULOSKELETAL/EXTREMETIES Musculoskeletal/Extremeties: CHEMA BAH - NEURO Level of Consciousness: Awake, Alert, Appropriate Motor/Sensory: No Motor Deficit - DERM Integumentary: Warm, Dry, No Rash Course - Re-evaluation Re-evalutation: 09/07/19 00:21 Offered patient prophylactic treatment for STI, patient declines stating that she gets tested and does not have a concern about STD at this time. 09/07/19 Patient not and not anemic. Patient with no large clots noted in vaginal vault. Suspect heavy irregular vaginal bleeding. Patient advised that she will need to follow-up with a staffing mgr for further evaluation of the cause of her irregular heavy vaginal bleeding. Patient stable for discharge at this time. - Vital Signs Vital signs: Temp Pulse Resp BP Pulse Ox 98.5 F 95 18 135/94 H 96 09/06/19 18:03 09/06/19 18:03 09/06/19 18:03 09/06/19 18:03 09/06/19 18:03 - Laboratory Result Diagrams: 09/06/19 19:32 09/06/19 19:32 Laboratory results interpreted by me: 09/06/19 09/06/19 18:51 19:32 MCH 26.2 L MCHC 31.9 L RDW 15.2 H Urine Protein 30 H Urine Blood LARGE H Urine Ascorbic Acid 40 H 09/07/19 02:34 Labs- Entire Visit 09/06/19 09/06/19 09/06/19 18:51 18:51 19:32 WBC 6.8 RBC 4.65 Hgb 12.2 Hct 38.1 MCV 82 MCH 26.2 L MCHC 31.9 L RDW 15.2 H Plt Count 219 Lymph % (Auto) 32.8 [place] % (Auto) 9.7 Eos % (Auto) 4.5 Baso % (Auto) 1.2 Absolute Neuts (auto) 3.5 Absolute Lymphs (auto) 2.2 Absolute Monos (auto) 0.7 Absolute Eos (auto) 0.3 Absolute Basos (auto) 0.1 Seg Neutrophils % 51.8 Sodium Potassium Chloride Carbon Dioxide Anion Gap BUN Creatinine Est GFR ( Amer) Est GFR (MDRD) Non-Af Glucose Calcium Total Bilirubin Direct Bilirubin Neonat Total Bilirubin Neonat Direct Bilirubin Neonat Indirect Bili AST ALT Alkaline Phosphatase Total Protein Albumin Beta HCG, Quant Total Beta HCG Urine Color YELLOW Urine Appearance SLIGHTLY-CLOUDY Urine pH 6.0 Ur Specific [place] 1.028 Urine Protein 30 H Urine Glucose (UA) NEGATIVE Urine Ketones NEGATIVE Urine Blood LARGE H Urine Nitrite (Reflex) NEGATIVE Urine Bilirubin NEGATIVE Urine Urobilinogen NEGATIVE Leukocyte Esterase Rfl NEGATIVE Urine RBC (Auto) >182 Urine WBC (Reflex) 6 Squamous Epi Cells Auto 2 Urine Mucus (Auto) FEW Urine Ascorbic Acid 40 H Trichomonas (Wet Prep) Vaginal WBC Vaginal RBC Vaginal Yeast Urine Opiates Screen NEGATIVE Urine Methadone Screen NEGATIVE Ur Barbiturates Screen NEGATIVE Ur Phencyclidine Scrn NEGATIVE Ur Amphetamines Screen NEGATIVE U Benzodiazepines Scrn NEGATIVE Urine Cocaine Screen UNCONFIRMED POSITIVE U Marijuana (THC) Screen NEGATIVE Chlamydia DNA (PCR) N.gonorrhoeae DNA (PCR) 09/06/19 09/07/19 09/07/19 19:32 00:10 00:10 WBC RBC Hgb Hct MCV MCH MCHC RDW Plt Count Lymph % (Auto) [place] % (Auto) Eos % (Auto) Baso % (Auto) Absolute Neuts (auto) Absolute Lymphs (auto) Absolute Monos (auto) Absolute Eos (auto) Absolute Basos (auto) Seg Neutrophils % Sodium 137.2 Potassium 4.4 Chloride 103 Carbon Dioxide 28 Anion Gap 6 BUN 13 Creatinine 0.90 Est GFR ( Amer) > 60 Est GFR (MDRD) Non-Af > 60 Glucose 87 Calcium 10.1 Total Bilirubin 0.3 Direct Bilirubin 0.1 Neonat Total Bilirubin Not Reportable Neonat Direct Bilirubin Not Reportable Neonat Indirect Bili Not Reportable AST 20 ALT 12 Alkaline Phosphatase 69 Total Protein 7.0 Albumin 4.0 Beta HCG, Quant < 2.39 Total Beta HCG NEGATIVE Urine Color Urine Appearance Urine pH Ur Specific [place] Urine Protein Urine Glucose (UA) Urine Ketones Urine Blood Urine Nitrite (Reflex) Urine Bilirubin Urine Urobilinogen Leukocyte Esterase Rfl Urine RBC (Auto) Urine WBC (Reflex) Squamous Epi Cells Auto Urine Mucus (Auto) Urine Ascorbic Acid Trichomonas (Wet Prep) NO TRICHOMONAS SEEN Vaginal WBC NO WBCS SEEN Vaginal RBC 2+ RBCS SEEN Vaginal Yeast NO YEAST SEEN Urine Opiates Screen Urine Methadone Screen Ur Barbiturates Screen Ur Phencyclidine Scrn Ur Amphetamines Screen U Benzodiazepines Scrn Urine Cocaine Screen U Marijuana (THC) Screen Chlamydia DNA (PCR) NOT DETECTED N.gonorrhoeae DNA (PCR) NOT DETECTED Discharge - Discharge Clinical Impression: Dysmenorrhea Condition: Stable Disposition: HOME, SELF-CARE Instructions: Anti-Inflammatory Medication ([facility]), Dysmenorrhea ([facility]) Additional Instructions: Return immediately for any new or worsening symptoms Followup with your primary care provider, call tomorrow to make a followup appointment Cultures are pending, we will call if you need any different treatment Follow-up with your staffing mgr, they may need to perform additional testing to determine the source of your irregular vaginal bleeding. Prescriptions: Naproxen [Naprosyn 250 Nmg Tablet] 1 tab PO BID #14 tablet Referrals: KILEY DUKES MD [Primary Care Provider] - Follow up as needed [facility] [Provider Group] - Follow up as needed
[2019-09-07 00:26] LABS: RBCS (WET MOUNT) 2+ RBCS SEEN; T.VAGINALIS (WET MOUNT) NO TRICHOMONAS SEEN; WBCS (WET MOUNT) NO WBCS SEEN; YEAST (WET MOUNT) NO YEAST SEEN
[2019-09-07 01:53] LABS: CHLAM PCR NOT DETECTED (NOT DETECT)
== END 2019-09-07 01:33 | disposition home or self-care (01) ==
LOC: ER 17:36
DX: N94.6 Dysmenorrhea, unspecified (principal); R10.9 Unspecified abdominal pain; F17.200 Nicotine dependence, unspecified, uncomplicated; F14.10 Cocaine abuse, uncomplicated; F12.10 Cannabis abuse, uncomplicated; Z87.19 Personal history of other diseases of the digestive system
CPT/HCPCS: 36415; 87210; 84702; 85025; 80053; 81001; 80307; 87491; 87591; J3490; 99284